=== PATIENT | male | born 1965 | race American Indian/Alaskan Native ===

== ENCOUNTER 2016-07-18 06:05 | Emergency (ER) | payer MEDICAID, OTHER ==
[2016-07-18 06:26] VITALS: BMI 21.5
--- NOTE | 2016-07-18 06:32 | ED PDOC ---
HPI: Psych/Substance Abuse Time Seen by Provider: 07/18/16 06:19 Chief Complaint (Provider): alcohol intoxication and head injury History Per: Patient History/Exam Limitations: no limitations Onset/Duration Of Symptoms: Hrs Current Symptoms Are (Timing): Still Present Additional History Per: Patient Additional Complaint(s): Arnold Casper is a 51 year old male with a pertinent past medical history of hypertension and diabetes who presents to the ED for eval of alcohol intoxication and a head injury. Patient reports falling face forward while drunk. Denies loss of consciousness. Past Medical History Reviewed: Historical Data, Nursing Documentation, Vital Signs - Medical History PMH: HTN, Hypercholesterolemia, Schizophrenia - Surgical History Surgical History: No Surg Hx - Family History Family History: States: Unknown Family Hx - Allergies Allergies/Adverse Reactions: Allergies Allergy/AdvReac Type Severity Reaction Status Date / Time No Known Allergies Allergy Verified 10/06/15 06:36 Review of Systems ROS Statement: Except As Marked, All Systems Reviewed And Found Negative Musculoskeletal: Positive for: Other (head injury ) Neurological: Positive for: Other (no LOC) Physical Exam - Reviewed Nursing Documentation Reviewed: Yes Vital Signs Reviewed: Yes - Physical Exam Appears: Positive for: Well, Non-toxic, No Acute Distress Head Exam: Negative for: ATRAUMATIC (Small abrasion on right side of forehead, small area of swelling on forehead) Skin: Positive for: Normal Color, Warm, Dry Eye Exam: Positive for: Normal appearance, EOMI, PERRL ENT: Positive for: Normal ENT Inspection, Other (Blood on right side of nostril , no septal hematoma) Neck: Positive for: Normal, Painless ROM, Supple Cardiovascular/Chest: Positive for: Regular Rate, Rhythm. Negative for: Tachycardia Respiratory: Positive for: Normal Breath Sounds. Negative for: Respiratory Distress Gastrointestinal/Abdominal: Positive for: Normal Exam, Soft. Negative for: Tenderness Back: Positive for: Normal Inspection Extremity: Positive for: Normal ROM Neurologic/Psych: Positive for: Alert, Oriented, Gait (unsteady) - Laboratory Results Result Diagrams: 07/18/16 07:27 07/18/16 07:27 Medical Decision Making Medical Decision Makin: Initial Impression: Alcohol intoxication and Head injury Initial Plan: * Head CT * Alcohol serum * BMP * CBC * PTT * Prothrombin * Re-Eval Patient signed out to Dr. David at [address] Scribe~Attestation: Documented by Emiliano Orlando acting as a scribe for Julio Bryant MD. ProviderAngelesAttestation: All medical record entries made by theAngeleswere at my direction and personally dictated by me. I have reviewed the chart and agree that the record accurately reflects my personal performance of the history, physical exam, medical decision making, and the department course for this patient. I have also personally directed, reviewed, and agree with the discharge instructions and disposition. Disposition - Clinical Impression Clinical Impression: Alcohol intoxication - Patient ED Disposition Is Patient to be Admitted: Transfer of Care Counseled Patient/Family Regarding: Studies Performed, Diagnosis - Disposition Referrals: [facility] [Outside] [facility] [Outside] Disposition: Transfer of Care Disposition Time: 07:00 Condition: FAIR Instructions: Alcohol Intoxication (ED) Patient Signed Over To: Carol David Handoff Comments: Pending labs and CT
[2016-07-18 07:13] VITALS: BP 132/72; PULSE 95; RESP 17; TEMP 98.7; O2SAT 93
--- NOTE | 2016-07-18 07:34 | ED PDOC ---
- Laboratory Results Result Diagrams: 07/18/16 07:27 07/18/16 07:27 - ECG O2 Sat by Pulse Oximetry: 93 Medical Decision Making Medical Decision Making: received patient from Dr. Bryant. Patient intoxicated with fall and head injury. He is pending sobriety and results of CT scan of the head. patient is awake and alert. CT head normal as per radiologist. Will d/c Disposition Doctor Will See Patient In The: Office Counseled Patient/Family Regarding: Diagnosis, Need For Followup - Clinical Impression Clinical Impression: Alcohol intoxication - POA Present On Arrival: Falls Or Trauma - Disposition Referrals: [facility] [Outside] [facility] [Outside] Disposition: Routine/Home Disposition Time: 08:59 Condition: STABLE Instructions: Alcohol Intoxication (ED)
[2016-07-18 07:44] LABS: MEAN CELL VOLUME 85.5 fl (80.0-94.0); MEAN CORPUSCULAR HEMOGLOBIN 29.7 pg (27.0-31.0); MEAN CORPUSCULAR HGB CONC 34.7 g/dL (33.0-37.0); RED CELL DISTRIBUTION WIDTH 13.9 % (11.5-14.5); WHITE BLOOD COUNT 8.8 K/uL (4.8-10.8)
--- NOTE | 2016-07-18 07:49 | CT ---
PROCEDURE: CT HEAD WITHOUT CONTRAST. HISTORY: head injury COMPARISON: None available. TECHNIQUE: Axial computed tomography images were obtained through the head/brain without intravenous contrast. Radiation dose: Total exam DLP = 966 mGy-cm. This CT exam was performed using one or more of the following dose reduction techniques: Automated exposure control, adjustment of the mA and/or kV according to patient size, and/or use of iterative reconstruction technique. FINDINGS: HEMORRHAGE: No intracranial hemorrhage. BRAIN: No mass effect or edema. No atrophy or chronic microvascular ischemic changes. VENTRICLES: Unremarkable. No hydrocephalus. CALVARIUM: Unremarkable. PARANASAL SINUSES: Unremarkable as visualized. No significant inflammatory changes. MASTOID AIR CELLS: Unremarkable as visualized. No inflammatory changes. OTHER FINDINGS: None. IMPRESSION: Normal CT of the Head.
[2016-07-18 08:06] LABS: ALCOHOL SERUM 251 mg/dl (0-10); BLOOD UREA NITROGEN 15 mg/dl (9-20); CALCIUM 9.3 mg/dL (8.4-10.2); CARBON DIOXIDE 19 mmol/L (22-30); CHLORIDE 97 mmol/L (98-107); GFR AFRICAN-AMERICAN > 60; GLUCOSE,RANDOM 113 mg/dL (75-110); PARTIAL THROMBOPLASTIN TIME 25.6 SECONDS (23.3-32.5); POTASSIUM 3.5 MMOL/L (3.6-5.0); SODIUM 138 mmol/l (132-148)
== END 2016-07-18 10:50 | disposition home or self-care (01) ==
LOC: H.ER 06:05
DX: F10.129 Alcohol abuse with intoxication, unspecified (principal); Y90.8 Blood alcohol level of 240 mg/100 ml or more; I10 Essential (primary) hypertension; E11.9 Type 2 diabetes mellitus without complications; F17.210 Nicotine dependence, cigarettes, uncomplicated

== ENCOUNTER 2016-09-28 06:53 | Observation (INO) | payer OTHER ==
[2016-09-28 07:12] VITALS: BMI 29.1
--- NOTE | 2016-09-28 07:46 | ED PDOC ---
HPI: Psych/Substance Abuse Time Seen by Provider: 09/28/16 07:05 Chief Complaint (Nursing): Alcohol Ingestion Chief Complaint (Provider): Alcohol Ingestion History/Exam Limitations: intoxication Onset/Duration Of Symptoms: Hrs Current Symptoms Are (Timing): Still Present Modifying Factor(s): Alcohol Additional Complaint(s): Arnold Casper is a 51-year-old male who was brought to the ED via EMS for an evaluation of alcohol ingestion. Patient admits to drinking budweiser all night. Denies fall injury. PMD: None reported Past Medical History Reviewed: Historical Data, Nursing Documentation, Vital Signs - Medical History PMH: HTN, Hypercholesterolemia, Schizophrenia - Surgical History Surgical History: No Surg Hx - Family History Family History: States: Unknown Family Hx - Social History Current smoker - smoking cessation education provided: Yes (> 10 packs per day) Alcohol: Social Drugs: Denies - Allergies Allergies/Adverse Reactions: Allergies Allergy/AdvReac Type Severity Reaction Status Date / Time No Known Allergies Allergy Verified 10/06/15 06:36 Review of Systems Review Of Systems: ROS cannot be obtained secondary to pt's inabilty to answer questions. Physical Exam - Reviewed Nursing Documentation Reviewed: Yes Vital Signs Reviewed: Yes - Physical Exam Appears: Positive for: No Acute Distress. Negative for: Well (Slurred speech with alcohol on breath) Head Exam: Positive for: ATRAUMATIC, NORMAL INSPECTION, NORMOCEPHALIC Skin: Positive for: Normal Color, Warm, DRY Eye Exam: Positive for: EOMI, Normal appearance, PERRL ENT: Positive for: Other (Poor dentition). Negative for: Normal ENT Inspection Neck: Positive for: Normal, Painless ROM, Supple Cardiovascular/Chest: Positive for: Regular Rate, Rhythm Respiratory: Positive for: CNT, Normal Breath Sounds Gastrointestinal/Abdominal: Positive for: Normal Exam, Soft. Negative for: Tenderness Back: Positive for: Normal Inspection. Negative for: Vertebral Tenderness Extremity: Positive for: Normal ROM, Other (Movement symmetrical and equal) Neurologic/Psych: Positive for: Alert, Oriented, Other (Coordination abnormal due to ETOH) - Laboratory Results Result Diagrams: 09/28/16 07:45 Medical Decision Making Medical Decision Making: Time:07:45 Initial impression: ETOH Initial plan: ---Alcohol Serum ---Basic Metabolic Panel ---AccuCheck ---Reassessment 09:21 ---He is arousable but remains with slurred speech. Blood work was unremarkable ; alcohol level was 260 ---Admit to hospital routine on observation for alcohol intoxication Scribe Attestation: Documented by Sophia Wheeler, acting as a scribe for Anand Oviedo MD. Provider Scribe Attestation: All medical record entries made by the Scribe were at my direction and personally dictated by me. I have reviewed the chart and agree that the record accurately reflects my personal performance of the history, physical exam, medical decision making, and the department course for this patient. I have also personally directed, reviewed, and agree with the discharge instructions and disposition. ED OBSERVATION Date of observation admission: 09/28/16 Time of observation admission: 09:21 - Observation admission statement Patient is being placed in observation because:: Alcohol intoxication - Goals of Observation Goals of observation are:: Pending clinical sobriety - Progress Note Progress Note: 09/28/16 10:50 --Patient is resting comfortably and pending for clinical sobriety. 09/28/16 11:30 Upon provider reevaluation patient is alert, awake with stable gait and speech and requires no further treatment in the ED at this time. Patient will be discharged home. Counseling was provided and all questions were answered regarding diagnosis and educated on alcohol use. There is agreement to discharge plan. Return if symptoms persist or worsen. Clinical Impression: Alcohol Abuse Disposition - Clinical Impression Clinical Impression: Alcohol abuse - Patient ED Disposition Is Patient to be Admitted: No Counseled Patient/Family Regarding: Diagnosis - Disposition Disposition: Routine/Home Disposition Time: 11:30 Condition: STABLE
[2016-09-28 09:00] LABS: BLOOD UREA NITROGEN 20 mg/dl (9-20); GFR AFRICAN-AMERICAN > 60; GFR NON-AFRICAN AMERICAN > 60
[2016-09-28 11:39] VITALS: BP 128/72; PULSE 87; RESP 16; TEMP 98; O2SAT 99
== END 2016-09-28 11:37 | disposition home or self-care (01) ==
LOC: H.ER 06:53 → H.EROBSV 09:21
PROVIDERS: ADMIT Emergency Medicine; ATTEND Emergency Medicine
DX: F10.129 Alcohol abuse with intoxication, unspecified (principal); Y90.8 Blood alcohol level of 240 mg/100 ml or more; E78.00 Pure hypercholesterolemia, unspecified; I10 Essential (primary) hypertension; F20.9 Schizophrenia, unspecified; F17.210 Nicotine dependence, cigarettes, uncomplicated